=== PATIENT | female | born 1970 | race Caucasian/White ===

== ENCOUNTER 2020-03-20 10:41 | Emergency (ER) | payer OTHER, SELFPAY ==
[2020-03-20 10:51] VITALS: BP 114/55; PULSE 77; RESP 30; TEMP 36.9; O2SAT 99; BMI 24.7
--- NOTE | 2020-03-20 11:07 | CT_ITS ---
WS: [id number] CT ABDOMEN AND PELVIS WITH CONTRAST HISTORY: epigastric abd pain, severe LEFT upper quadrant pain TECHNIQUE: Imaging performed of the abdomen and pelvis with IV contrast. Single phase imaging of the abdomen. Coronal and sagittal reformats are submitted. All CT scans at [facility] use at least one of these dose optimization techniques: automated exposure control; mA and/or kV adjustment per patient size (includes targeted exams where dose is matched to clinical indication); or iterativ e reconstruction. IV CONTRAST: Omnipaque 300; 95 mL IV. Oral contrast: No DLP: 837.03 mGy.cm COMPARISON: None available. Quality of this examination is significantly limited by breathing motion artifact. Lower thorax: Lung bases are clear. Heart is normal size. No hiatal hernia. Liver/biliary system: Liver is normal size. There is marked intrahepatic and extrahepatic duct dilata tion. There are a few scattered low-attenuation lesions in the liver with the largest measuring 10 mm . Early metastatic lesions not excluded but these may be benign cysts. Gallbladder: Contracted gallbladder. Pancreas: Mild change in density of the pancreatic head. Common bile duct tapers rapidly to the pancr eatic head and there are changes suspicious for pancreatic head mass measuring 3.2 x 2.7 cm. There is no pancreatic duct dilatation or atrophy. Spleen: Normal. Adrenal glands: Adrenals are poorly visualized. No mass. Right kidney: Mild atrophy and cortical thinning. No obstruction. Left kidney: Mild atrophy with no obstruction. Hypodensity in the posterior renal pelvis is probably a cyst. Aorta: Normal. Lymphadenopathy: No lymph nodes are identified. Free fluid: None. GI tract: There is no GI tract obstruction. The duodenal C-loop at the pancreatic head is poorly visu alized due to motion. Abdominal wall: Unremarkable abdominal wall. No hernia. Pelvis: Uterus is enlarged. There is a heterogeneous enhancing mass in the central uterus. Mixed dens ity and enhancement in the central uterus measures 5.5 x 4.2 cm. Differential includes endometrial ne oplasia and subserosal fibroid. There is an additional cyst near the cervix measuring 2.[address] RIGHT ovarian cyst measures 3.3 x 3.0 cm. Bones: Increase in the lumbar lordosis. CT/CT abdomen pelvis w con* [id number] IMPRESSION: 1. Marked intrahepatic and extrahepatic duct dilatation. Suspect mass resultin g in obstruction at the pancreatic head/duodenum junction. Pancreatic neoplasm needs to be excluded. Common bile duct measures 1.6 cm. 2. Central uterine mass measuring 5.5 x 4.2 cm. Differential includes endometr ial neoplasm and subserosal fibroid. Recommend follow-up transvaginal pelvic ul trasound imaging and LOUVER MORTISER OPERATOR consultation. 3. A few scattered hypoattenuating lesions in the liver. 2 small to characteri ze. Benign cyst versus early metastatic lesions. 4. Study is compromised overall by motion. 5. Large nabothian cyst and a moderate-sized RIGHT ovarian cyst.
--- NOTE | 2020-03-20 11:08 | W.ED.ABDPA2 ---
HPI - Abdominal Pain General: Chief Complaint: Abdominal Pain Stated Complaint: ABD PAIN Time Seen by Provider: 03/20/20 10:49 History of Present Illness: HPI narrative: Patient is a 49-year-old female with no significant past medical history who comes to the ER complaining of severe epigastric abdominal pain which started this morning. She has never had this pain before. She is yelling and screaming grabbing and palpating her epigastric region with no tenderness when she palpates. When I palpate her reaction is out of proportion to most patients with this type of pain. She was given 100 mics of fentanyl by EMS on the way and rates her pain at a 5 currently. She is very panicked and sometimes will breathe 50 times a minute while you are in there. When you leave the room she is much more calm and breathes normally. Has any abdominal surgeries, gallstones, alcohol or drug intake. She had a normal bowel movement yesterday. MD elicited complaint: abdominal pain Pertinent past history: none Location: Epigastric Severity: severe Pain scale (0-10): 6 Quality: stabbing and sharp Exacerbating factors: nothing Relieving factors: nothing Associated Symptoms: Reports no associated symptoms; Denies GI cramping and diarrhea Review of Systems General: Reports: 10 or more systems reviewed and unremarkable except in HPI and below Const: Denies: fatigue Eyes: Denies: change in vision, blurry vision or eye redness ENMT: Denies: throat pain, swelling of lips/tongue, ear or mastoid pain or nasal congestion Card: Denies: chest pain, palpitations, irregular heart rhythm, edema, dyspnea on exertion or orthopnea Resp: Denies: dyspnea, productive cough or non-productive cough GI: Denies: abdominal pain, diarrhea or GI cramping : Denies: flank pain, difficulty voiding, urinary frequency or urinary urgency Musc: Denies: neck pain, back pain, extremity pain, joint pain, joint redness, limited range of motion or muscle weakness Skin/Breast: Denies: rash, pruritus, erythema, skin pain or skin tenderness Neuro: Denies: headache(s), numbness in extremities, weakness in extremities, sensory changes, difficulty walking, dizziness, confusion or Slurred speech present Psych: Denies: anxiety or depression Endo: Denies: polyuria All/Imm: Denies: urticaria, throat swelling or tongue swelling Physical Exam Const: COMMON NORMALS: no acute distress, average body habitus, patient oriented x3, no limitations, healthy appearing, alert and well nourished GENERAL APPEARANCE: cooperative, comfortable, well kempt and well developed ORIENTATION/CONSCIOUSNESS: Yes awake, Yes oriented to person, Yes oriented to place and Yes oriented to time HENMT: COMMON NORMALS: normocephalic, external ears normal and Normal external nose present HEAD & SCALP: normal to inspection and normocephalic NOSE: Normal external nose present EXTERNAL EAR: Yes external ears normal MOUTH: Normal oral and palatal mucosa present THROAT: posterior oropharynx normal Eye: COMMON NORMALS: Equal, round and reactive pupils present and EOMs intact bilaterally GENERAL EYE: appearance normal, both eyes and all related structures PUPIL: Yes Equal, round and reactive pupils present Neck/C-Spine: COMMON NORMALS: full ROM, no lymphadenopathy, no meningeal signs and no JVD GENERAL: Yes normal visual inspection Lymph: LYMPHATIC: no lymphadenopathy noted Chest: COMMONS NORMALS: normal inspection of the chest and normal palpation of entire chest wall Resp: COMMON NORMALS: normal respiratory effort, No retractions, No use of accessory muscles, clear to auscultation bilaterally and percussion normal EFFORT & INSPECTION: Yes able to speak in complete sentences AUSCULTATION: clear to auscultation bilaterally PERCUSSION: percussion normal Cardio: COMMON NORMALS: no JVD, regular rate, regular rhythm, S1 normal heart sound present, S2 normal heart sound present and Peripheral pulses 2+ throughout RATE: regular rate RHYTHM: regular rhythm HEART SOUNDS: S1 normal heart sound present and S2 normal heart sound present PERIPHERAL PULSES: Peripheral pulses 2+ throughout GI: COMMON NORMALS: Normal to inspection, nondistended, normoactive bowel sounds present, Soft to palpation and no masses INSPECTION: Yes normal to inspection PALPATION: Yes Soft to palpation OTHER: Epigastric abdominal tenderness. Severe pain when I palpate it. When she is rubbing and scratching her belly which she does not realize she is palpating her belly she does not have severe tenderness in the area. : COMMON NORMALS: Yes no CVA tenderness BLADDER/KIDNEY EXAM: Yes no CVA tenderness Back/Pelvis: COMMON NORMALS: no CVA tenderness, thoracic and lumbar spine normal to inspection, no thoracic nor lumbar tenderness and thoraco-lumbar ROM normal Extremity: COMMON NORMALS: normal to inspection, full ROM, capillary refill normal, no joint enlargement and no pedal edema GENERAL: Yes normal exam except as noted Neuro: COMMON NORMALS: patient oriented x3, CN's II-XII intact bilaterally, moves all extremities, no focal motor deficits, no sensory deficits noted and gait normal SENSORIUM/ORIENTATION: Yes alert, Yes oriented to person, Yes oriented to place and Yes oriented to time MENINGEAL SIGNS: Yes no meningeal signs Psych: COMMON NORMALS: mental status grossly normal, Normal thought process present, cooperative, normal affect and speech normal APPEARANCE: Yes well kempt ATTITUDE: Yes calm SPEECH: Yes normal speech THOUGHT PROCESS: Normal thought process present Skin: COMMON NORMALS: no rashes or lesions noted GENERAL SKIN EXAM: no rashes or lesions noted Course Vital Signs: Vital signs: Vital Signs Temperature 98.4 F 03/20/20 10:51 Pulse Rate 77 03/20/20 10:51 Respiratory Rate 18 03/20/20 13:31 Blood Pressure 114/55 03/20/20 10:51 Pulse Oximetry 99 03/20/20 10:51 MDM - Abdominal Pain MDM Narrative: Medical decision making narrative: The patient came in complaining of epigastric pain. On CT she has a pancreatic head mass obstructing the common bile duct with some dilatation. That is likely the cause of her pain and her lipase is elevated so there is also some acute pancreatitis present. Discussed with the patient and she prefers transfer to [facility]. Discussed with ER physician Dr. Tony who accepts for transfer. Lab Data: Labs: Lab Results 03/20/20 03/20/20 03/20/20 Range/Units 11:07 11:07 11:07 WBC (4.0-10.0) 10^3/ uL RBC (4.1-5.3) 10^6/u L Hgb (11.5-15.3) g/dL Hct (37.0-47.0) % MCV (81-99) fL MCH (28.0-34.0) pg MCHC (30.0-36.0) g/dL RDW (12.1-15.1) % Plt Count (130-400) 10^3/c mm MPV (7.4-10.4) fL Neut % (Auto) % Lymph % (Auto) % [place] % (Auto) % Eos % (Auto) % Baso % (Auto) % Neut # (Auto) (1.8-7.7) 10^3/u L Lymph # (Auto) (0.8-4.8) 10^3/u L [place] # (Auto) (0.2-0.9) 10^3/u L Eos # (Auto) (0.0-0.8) 10^3/u L Baso # (Auto) (0.0-0.1) 10^3/u L Nucleated RBC % (a uto) % Nucleated RBCs # /100WBC Sodium (136-145) mmol/L Potassium (3.5-5.1) mmol/L Chloride (98-107) mmol/L Carbon Dioxide (22-29) mmol/L Anion Gap (5-19) BUN (6-20) mg/dL Creatinine (0.5-0.9) mg/dL GFR Calculation (90-130) mL/min Glucose (65-115) mg/dL Calculated Osmolal ity (285-295) mOsm/k g Lactate (0.5-2.2) mmol/L Calcium (8.5-10.5) mg/dL Total Bilirubin (0.15-1.2) mg/dL AST (0-32) U/L ALT (0-33) U/L Alkaline Phosphata se (35-105) IU/L Total Protein (6.6-8.7) g/dL Albumin (3.5-5.2) g/dL Globulin (1.3-4.6) g/dL Lipase (13-60) U/L HCG, Qual Negative (Negative) Urine Color Straw (Yellow) Urine Appearance Clear (CLEAR) Urine pH 7 (5-7) Ur Specific Gravit y 1.000 L (1.005-1.030) Urine Protein Neg (Negative) Urine Glucose (UA) Norm (Normal) Urine Ketones Negative (Negative) Urine Blood Neg (Negative) Urine Nitrate Negative (Negative) Urine Bilirubin Neg (Negative) Urine Urobilinogen Norm (Negative) mg/dL Ur Leukocyte Leann ase Negative (Negative) Urine Opiates Scre en Negative (Negative) ng/mL Ur Barbiturates Sc reen Negative (Negative) ng/mL Ur Phencyclidine S crn Negative (Negative) ng/mL Ur Amphetamines Sc reen Negative (Negative) ng/mL U Benzodiazepines Scrn Negative (Negative) ng/mL Urine Cocaine Scre en Negative (Negative) ng/mL U Marijuana (THC) Screen Negative (Negative) ng/mL Ethyl Alcohol (0-10) mg/dL 03/20/20 03/20/20 03/20/20 Range/Units 11:12 11:12 11:12 WBC 17.2 H (4.0-10.0) 10^3/ uL RBC 4.29 (4.1-5.3) 10^6/u L Hgb 11.7 (11.5-15.3) g/dL Hct 36.8 L (37.0-47.0) % MCV 85.8 (81-99) fL MCH 27.3 L (28.0-34.0) pg MCHC 31.8 (30.0-36.0) g/dL RDW 14.5 (12.1-15.1) % Plt Count 331 (130-400) 10^3/c mm MPV 9.2 (7.4-10.4) fL Neut % (Auto) 88.0 % Lymph % (Auto) 4.8 % [place] % (Auto) 6.0 % Eos % (Auto) 0.3 % Baso % (Auto) 0.3 % Neut # (Auto) 15.16 H (1.8-7.7) 10^3/u L Lymph # (Auto) 0.8 (0.8-4.8) 10^3/u L [place] # (Auto) 1.0 H (0.2-0.9) 10^3/u L Eos # (Auto) 0.1 (0.0-0.8) 10^3/u L Baso # (Auto) 0.1 (0.0-0.1) 10^3/u L Nucleated RBC % (a uto) 0 % Nucleated RBCs # 0.0 /100WBC Sodium 138 (136-145) mmol/L Potassium 3.6 (3.5-5.1) mmol/L Chloride 106 (98-107) mmol/L Carbon Dioxide 20 L (22-29) mmol/L Anion Gap 15.6 (5-19) BUN 14 (6-20) mg/dL Creatinine 0.7 (0.5-0.9) mg/dL GFR Calculation 89.7 L (90-130) mL/min Glucose 158 H (65-115) mg/dL Calculated Osmolal ity 290 (285-295) mOsm/k g Lactate 3.2 H (0.5-2.2) mmol/L Calcium 8.8 (8.5-10.5) mg/dL Total Bilirubin 0.5 (0.15-1.2) mg/dL AST 34 H (0-32) U/L ALT 17 (0-33) U/L Alkaline Phosphata se 88 (35-105) IU/L Total Protein 6.7 (6.6-8.7) g/dL Albumin 3.8 (3.5-5.2) g/dL Globulin 2.9 (1.3-4.6) g/dL Lipase > 4329 H (13-60) U/L HCG, Qual (Negative) Urine Color (Yellow) Urine Appearance (CLEAR) Urine pH (5-7) Ur Specific Gravit y (1.005-1.030) Urine Protein (Negative) Urine Glucose (UA) (Normal) Urine Ketones (Negative) Urine Blood (Negative) Urine Nitrate (Negative) Urine Bilirubin (Negative) Urine Urobilinogen (Negative) mg/dL Ur Leukocyte Leann ase (Negative) Urine Opiates Scre en (Negative) ng/mL Ur Barbiturates Sc reen (Negative) ng/mL Ur Phencyclidine S crn (Negative) ng/mL Ur Amphetamines Sc reen (Negative) ng/mL U Benzodiazepines Scrn (Negative) ng/mL Urine Cocaine Scre en (Negative) ng/mL U Marijuana (THC) Screen (Negative) ng/mL Ethyl Alcohol < 10 (0-10) mg/dL Discharge Plan Discharge Patient Disposition: Xfer Other Clinical Impression: Mass of pancreas, Acute pancreatitis, Common bile duct (CBD) obstruction Condition: Stable Coding Level of Care Code ED Lumber Driver for Chg Fwd Exam Comprehensive
[2020-03-20] MEDS: iohexol 300 mg/mL 100 mL Btl IV (11:25)
[2020-03-20] MEDS: LORazepam 2 mg/mL INJ 1 mL 0.5 MG IVP (11:33)
[2020-03-20] MEDS: lidocaine 2% viscous 15 ML, aluminum-mag hydrox-simethicon 30 ML, sucralfate oral liq 1 GM PO (11:34)
[2020-03-20 11:40] LABS: Basophils # 0.1 10^3/uL (0.0-0.1); Basophils % 0.3 %; Eosinophils # 0.1 10^3/uL (0.0-0.8); Eosinophils % 0.3 %; Hematocrit 36.8 % (37.0-47.0); Hemoglobin 11.7 g/dL (11.5-15.3); Lymphocytes # 0.8 10^3/uL (0.8-4.8); Lymphocytes % 4.8 %; Mean Corpuscular HGB Conc 31.8 g/dL (30.0-36.0); Mean Corpuscular Hemoglobin 27.3 pg (28.0-34.0); Mean Corpuscular Volume 85.8 fL (81-99); Mean Platelet Volume 9.2 fL (7.4-10.4); Neutrophils # 15.16 10^3/uL (1.8-7.7); Nucleated Red Blood Cells % 0 %; Platelet Count 331 10^3/cmm (130-400); Red Blood Count 4.29 10^6/uL (4.1-5.3); Red Cell Distribution Width 14.5 % (12.1-15.1); White Blood Count 17.2 10^3/uL (4.0-10.0)
[2020-03-20 11:49] LABS: Alanine Aminotransferase 17 U/L (0-33); Albumin Level 3.8 g/dL (3.5-5.2); Alkaline Phosphatase 88 IU/L (35-105); Anion Gap 15.6 (5-19); Aspartate Amino Transferase 34 U/L (0-32); Blood Urea Nitrogen 14 mg/dL (6-20); Calcium 8.8 mg/dL (8.5-10.5); Carbon Dioxide 20 mmol/L (22-29); Chloride 106 mmol/L (98-107); Globulin 2.9 g/dL (1.3-4.6); Glomerular Filtration Rate 89.7 mL/min (90-130); Glucose 158 mg/dL (65-115); Osmolality Calculated 290 mOsm/kg (285-295); Potassium 3.6 mmol/L (3.5-5.1); Sodium 138 mmol/L (136-145); Total Bilirubin 0.5 mg/dL (0.15-1.2); Total Protein 6.7 g/dL (6.6-8.7)
[2020-03-20 11:50] LABS: Lactate (Lactic Acid level) 3.2 mmol/L (0.5-2.2)
[2020-03-20 11:52] LABS: Alcohol Level < 10 mg/dL (0-10)
[2020-03-20 12:07] LABS: Amphetamines Screen Urine Negative (Negative); Barbiturates Screen Urine Negative (Negative); Benzodiazepines Screen Urine Negative (Negative); Cocaine Screen Urine Negative (Negative); Opiate Screen Urine Negative (Negative); PCP Screen Urine Negative (Negative); THC Screen Urine Negative (Negative)
[2020-03-20 12:14] LABS: Add Urine Microscopic? NO
[2020-03-20 12:21] LABS: Bilirubin Urine Neg (Negative); Blood Urine Neg (Negative); Glucose Urine UA Norm (Normal); Ketones Urine Negative (Negative); Leukocyte Esterase Urine Negative (Negative); Nitrate Urine Negative (Negative); Protein Urine Neg (Negative); Urine Appearance Clear (CLEAR); Urine Color Straw (Yellow); Urobilinogen Urine Norm (Negative); pH Urine 7 (5-7)
[2020-03-20 12:23] LABS: HCG Qualitative Urine. Negative (Negative)
--- NOTE | 2020-03-20 12:25 | ECG_ITS ---
[facility] Test Date: 2020-03-20 Pat Name: America Robert Department: Room: Gender: Female Credit Collections Analyst: : 1970 Requested By: Domingo Barragan Order Number: [id number] Lima MD: Jeovany Ludwig M.D. Measurements Intervals [place] Rate: 78 P: 82 KS: 172 QRS: 81 QRSD: 110 T: 70 QT: 403 QTc: 460 Interpretive Statements SINUS RHYTHM WITH OCCASIONAL VENTRICULAR PREMATURE COMPLEXES No previous ECG available for comparison Electronically Signed On 03-20-2020 20:11:34 CLIN NURSE SPEC by Jeovany Ludwig M.D. [email or web address]
[2020-03-20] MEDS: ondansetron 2 mg/ML SDV 2 mL 4 MG IVP (12:34)
[2020-03-20 12:41] VITALS: RESP 18
[2020-03-20] MEDS: HYDROmorphone 1 mg/mL INJ 1 mL 0.5 MG IVP ×2 (12:41→13:31)
[2020-03-20] MEDS: sodium chloride 0.9% 1,000 ML 999 ML IV (12:45)
[2020-03-20] MEDS: vancomycin 1,000 MG in sodium chloride 0.9% 250 ML 250 MG IV (13:12)
[2020-03-20 13:31] VITALS: RESP 18
--- NOTE | 2020-03-20 13:33 | PC.NURSE ---
EKG done at 1330 and shown to ER doctor.
[2020-03-20 14:47] VITALS: BP 122/65; PULSE 78; RESP 18; O2SAT 99
[2020-03-20] MEDS: piperacillin-tazobactam 3.375 GM in sodium chloride 0.9% (plus) 50 ML IV (15:10)
[2020-03-20 15:42] VITALS: BP 131/79; PULSE 80; RESP 18; O2SAT 98
[2020-03-20 16:23] VITALS: BP 123/61; PULSE 79; RESP 19; TEMP 36.9; O2SAT 99
[2020-03-20 16:54] LABS: SARS Covid-2 Antigen Negative (Negative)
== END 2020-03-20 16:25 | disposition other institution (70) ==
PROVIDERS: Emergency Provider Family Medicine
DX: K85.90 Acute pancreatitis without necrosis or infection, unspecified (principal); K86.9 Disease of pancreas, unspecified; K83.1 Obstruction of bile duct
CPT/HCPCS: 12345; 36415; 74177; 80053; 80306; 80307; 81003; 81025; 83605; 83690; 85025; 87426; 93005; 96365; 96367; 96375; 96376; 99283; 99285; J1170; J2060; J2405; J2543; J3370; J7030; J7050; Q9967

== ENCOUNTER 2022-11-26 03:53 | Emergency (ER) | payer OTHER, BC, MEDICAID, SELFPAY ==
[2022-11-26 03:58] VITALS: BP 183/89; PULSE 91; RESP 20; TEMP 36.7; O2SAT 96; BMI 28.3
--- NOTE | 2022-11-26 04:07 | XRR_ITS ---
PROCEDURE INFORMATION: Exam: XR Chest Exam date and time: 11/26/2022 4:15 AM Age: 52 years old Clinical indication: Cough; Additional info: Cough congestion TECHNIQUE: Imaging protocol: Radiologic exam of the chest. Views: 1 view. COMPARISON: CT abdomen pelvis w con* [id number] 03/20/2020 11:12 AM FINDINGS: Lungs: Unremarkable. No consolidation. Pleural spaces: Unremarkable. No pleural effusion. No pneumothorax. Heart/Mediastinum: Unremarkable. No cardiomegaly. Bones/joints: Unremarkable. XR/XR chest 1V portable [id number] IMPRESSION: No acute findings.
--- NOTE | 2022-11-26 04:09 | ED_ITS ---
HPI - URI/Sore Throat General: Chief Complaint: Upper Respiratory Infection Stated Complaint: Body aches, head pain, congestion Time Seen by Provider: 11/26/22 03:55 History of Present Illness: Patient presents to the ER with complaints of cough cold congestion and overall body aches. Patient states this started a couple days ago and is progressively gotten worse. Patient does not know any sick contacts that has similar symptoms. Review of Systems General: Reports: 10 or more systems reviewed and unremarkable except in HPI and below Physical Exam Const: COMMON NORMALS: no acute distress, average body habitus, patient oriented x3, no limitations, healthy appearing, alert and well nourished HENMT: COMMON NORMALS: normocephalic, atraumatic, hearing grossly normal bilaterally, external ears normal, Normal external nose present, moist oral mucous membranes and oropharynx normal HEAD & SCALP: normocephalic and atraumatic NOSE: Normal external nose present EXTERNAL EAR: Yes external ears normal Neck/C-Spine: COMMON NORMALS: full ROM, no lymphadenopathy, supple, no meningeal signs, no JVD and Thyroid normal THYROID: Thyroid normal Chest: COMMONS NORMALS: normal inspection of the chest and normal palpation of entire chest wall Resp: COMMON NORMALS: normal respiratory effort, No retractions, No use of accessory muscles, clear to auscultation bilaterally and percussion normal AUSCULTATION: clear to auscultation bilaterally PERCUSSION: percussion normal Cardio: COMMON NORMALS: no JVD, regular rate, regular rhythm, S1 normal heart sound present, S2 normal heart sound present, No gallops present (Cardio), No clicks present (Cardio), No murmurs present (Cardio) and No rub (Cardio) RATE: regular rate RHYTHM: regular rhythm HEART SOUNDS: S1 normal heart sound present and S2 normal heart sound present GI: COMMON NORMALS: Normal to inspection, nondistended, normoactive bowel sounds present, Soft to palpation, non-tender, No hepatosplenomegaly present and no masses PALPATION: Yes Soft to palpation and Yes No hepatosplenomegaly present Neuro: COMMON NORMALS: patient oriented x3 SENSORIUM/ORIENTATION: Yes alert MENINGEAL SIGNS: Yes no meningeal signs Course Vital Signs: Vital signs: Vital Signs Temperature 98.0 F 11/26/22 03:58 Pulse Rate 91 11/26/22 03:58 Respiratory Rate 20 H 11/26/22 03:58 Blood Pressure 183/89 11/26/22 03:58 Pulse Oximetry 96 11/26/22 03:58 Oxygen Delivery Me thod Room Air 11/26/22 03:58 MDM - URI/Sore Throat Medical Decision Making Patient presents to the ER with complaints of viral-like syndrome. Patient was worked up with physical exam and lab work chest x-ray and influenza and COVID testing all of which were negative. Patient was given 60 mg Toradol for headache. Patient be discharged home with a diagnosis of upper respiratory infection/viral syndrome. Differential Diagnosis Likely upper respiratory infection and viral infection; Unlikely croup, otitis media, sinusitis, bronchitis, influenza or pharyngitis Medical Records I reviewed the patient's medical records. Lab Data I reviewed the patient's lab results. 11/26/22 04:20 11/26/22 04:20 Radiology Impressions Chest X-Ray 11/26/22 04:07 IMPRESSION: No acute findings. Laboratory Results WBC 8.80 10^3/uL (3.29-11.43) 11/26/22 04:20 RBC 4.36 10^6/uL (3.85-5.65) 11/26/22 04:20 Hgb 12.80 g/dL (11.27-16.99) 11/26/22 04:20 Hct 38.4 % (36-47) 11/26/22 04:20 MCV 88.1 fl (85-98) 11/26/22 04:20 MCH 29.4 pg (27-33) 11/26/22 04:20 MCHC 33.3 g/dL (30-55) 11/26/22 04:20 RDW 12.3 % (12.1-15.1) 11/26/22 04:20 Plt Count 296 10^3/cmm (157-399) 11/26/22 04:20 MPV 9.1 fL (7.4-10.4) 11/26/22 04:20 Neut % (Auto) 61.8 % 11/26/22 04:20 Lymph % (Auto) 27.0 % 11/26/22 04:20 [place] % (Auto) 7.2 % 11/26/22 04:20 Eos % (Auto) 3.2 % 11/26/22 04:20 Baso % (Auto) 0.3 % 11/26/22 04:20 Neut # (Auto) 5.44 10^3/uL (1.8-7.7) 11/26/22 04:20 Lymph # (Auto) 2.4 10^3/uL (0.8-4.8) 11/26/22 04:20 [place] # (Auto) 0.6 10^3/uL (0.2-0.9) 11/26/22 04:20 Eos # (Auto) 0.3 10^3/uL (0.0-0.8) 11/26/22 04:20 Baso # (Auto) 0.0 10^3/uL (0.0-0.1) 11/26/22 04:20 Nucleated RBC % (auto) 0 % 11/26/22 04:20 Nucleated RBCs # 0.0 /100WBC 11/26/22 04:20 Sodium 137 mmol/L (136-145) 11/26/22 04:20 Potassium 3.7 mmol/L (3.5-5.1) 11/26/22 04:20 Chloride 101 mmol/L (98-107) 11/26/22 04:20 Carbon Dioxide 26 mmol/L (22-29) 11/26/22 04:20 Anion Gap 13.7 (5-19) 11/26/22 04:20 BUN 13 mg/dL (6-20) 11/26/22 04:20 Creatinine 0.8 mg/dL (0.5-0.9) 11/26/22 04:20 GFR Calculation 75.9 mL/min (90-130) L 11/26/22 04:20 Glucose 93 mg/dL (65-115) 11/26/22 04:20 Calculated Osmolality 284 mOsm/kg (285-295) L 11/26/22 04:20 Calcium 9.1 mg/dL (8.5-10.5) 11/26/22 04:20 Total Bilirubin 0.2 mg/dL (0.15-1.2) 11/26/22 04:20 AST 14 U/L (0-32) 11/26/22 04:20 ALT 12 U/L (0-33) 11/26/22 04:20 Alkaline Phosphatase 56 U/L (35-105) 11/26/22 04:20 Total Protein 7.0 g/dL (6.6-8.7) 11/26/22 04:20 Albumin 4.2 g/dL (3.5-5.2) 11/26/22 04:20 Globulin 2.8 g/dL (1.3-4.6) 11/26/22 04:20 Urine Color Light yellow (Yellow) 11/26/22 04:26 Urine Appearance Clear (CLEAR) 11/26/22 04:26 Urine pH 6.5 (5-7) 11/26/22 04:26 Ur Specific [place] 1.005 (1.005-1.030) 11/26/22 04:26 Urine Protein Neg (Negative) 11/26/22 04:26 Urine Glucose (UA) Norm (Normal) 11/26/22 04:26 Urine Ketones Negative (Negative) 11/26/22 04:26 Urine Blood Neg (Negative) 11/26/22 04:26 Urine Nitrate Negative (Negative) 11/26/22 04:26 Urine Bilirubin Neg (Negative) 11/26/22 04:26 Urine Urobilinogen Neg mg/dL (Negative) 11/26/22 04:26 Ur Leukocyte Esterase Negative (Negative) 11/26/22 04:26 Influenza Type A Ag negative (Negative) 11/26/22 04:25 Influenza Type B Ag negative (Negative) 11/26/22 04:25 SARS-CoV-2 Ag (Rapid) negative (Negative) 11/26/22 04:25 All radiology interpretation(s) finalized by discharge Discharge Plan Discharge Patient Disposition: Home Clinical Impression: Upper respiratory infection Qualifiers: URI type: unspecified URI Qualified Code(s): J06.9 - Acute upper respiratory infection, unspecified Condition: Stable Prescriptions: No Action ibuprofen 200 mg Tablet 800 mg PO PRN Discharge Orders: Discharge ED (Routine); Ordered 11/26/22 Ordered By: Conrad Minaya Patient Instructions: Upper Respiratory Infection - Adult Activity Restrictions/Additional Instructions: Please continue take Tylenol Motrin as needed for body aches and push plenty of fluids. Please follow-up with your family practice physician within 7 days as needed for further evaluation and treatment. If symptoms worsen feel free to return to the ER. Coding Level of Care Code ED Director Social Welfare for Bailey Da Silva
[2022-11-26 04:28] LABS: Basophils % 0.3 %; Eosinophils # 0.3 10^3/uL (0.0-0.8); Eosinophils % 3.2 %; Hematocrit 38.4 % (36-47); Lymphocytes # 2.4 10^3/uL (0.8-4.8); Mean Corpuscular HGB Conc 33.3 g/dL (30-55); Mean Corpuscular Hemoglobin 29.4 pg (27-33); Mean Corpuscular Volume 88.1 fl (85-98); Mean Platelet Volume 9.1 fL (7.4-10.4); Monocytes # 0.6 10^3/uL (0.2-0.9); Monocytes % 7.2 %; Neutrophils # 5.44 10^3/uL (1.8-7.7); Neutrophils % 61.8 %; Nucleated Red Blood Cells % 0 %; Platelet Count 296 10^3/cmm (157-399); Red Blood Count 4.36 10^6/uL (3.85-5.65); Red Cell Distribution Width 12.3 % (12.1-15.1)
[2022-11-26 04:30] LABS: Add Urine Microscopic? NO; Charge for UA Resulting for Rev
[2022-11-26 04:34] LABS: Bilirubin Urine Neg (Negative); Blood Urine Neg (Negative); Glucose Urine UA Norm (Normal); Ketones Urine Negative (Negative); Leukocyte Esterase Urine Negative (Negative); Nitrate Urine Negative (Negative); Protein Urine Neg (Negative); Specific Gravity, Urine 1.005 (1.005-1.030); Urine Appearance Clear (CLEAR); Urine Color Light yellow (Yellow); Urobilinogen Urine Neg (Negative); pH Urine 6.5 (5-7)
[2022-11-26 04:45] LABS: Influenza A by IFA negative (Negative); Influenza B by IFA negative (Negative); SARS Covid-2 Antigen negative (Negative)
[2022-11-26 04:50] LABS: Alanine Aminotransferase 12 U/L (0-33); Albumin Level 4.2 g/dL (3.5-5.2); Alkaline Phosphatase 56 U/L (35-105); Anion Gap 13.7 (5-19); Aspartate Amino Transferase 14 U/L (0-32); Blood Urea Nitrogen 13 mg/dL (6-20); Calcium 9.1 mg/dL (8.5-10.5); Carbon Dioxide 26 mmol/L (22-29); Chloride 101 mmol/L (98-107); Globulin 2.8 g/dL (1.3-4.6); Glomerular Filtration Rate 75.9 mL/min (90-130); Glucose 93 mg/dL (65-115); Osmolality Calculated 284 mOsm/kg (285-295); Potassium 3.7 mmol/L (3.5-5.1); Sodium 137 mmol/L (136-145); Total Bilirubin 0.2 mg/dL (0.15-1.2)
[2022-11-26] MEDS: ketorolac 30 mg/mL INJ IVP (05:17)
== END 2022-11-26 05:28 | disposition home or self-care (01) ==
PROVIDERS: Emergency Provider Emergency Medicine
DX: J06.9 Acute upper respiratory infection, unspecified (principal); Z11.52 Encounter for screening for COVID-19
CPT/HCPCS: 71045; 80053; 81003; 85025; 87426; 87804; 96374; 99284; J1885

== ENCOUNTER → 2022-12-07 08:23 | Outpatient (BNVA) | payer OTHER, BC, SELFPAY | PROVIDERS: Referring Provider Nurse Practitioner; Visit Provider Specialist | DX: M19.041 Primary osteoarthritis, right hand; M19.042 Primary osteoarthritis, left hand | CPT/HCPCS: 73130 ==

== ENCOUNTER → 2023-09-28 15:00 | Outpatient (BNVA) | payer OTHER, SELFPAY | PROVIDERS: PCP Nurse Practitioner; Visit Provider Nurse Practitioner Family | DX: R50.9 Fever, unspecified (principal); J02.9 Acute pharyngitis, unspecified | CPT/HCPCS: 87400; 87426 ==

== ENCOUNTER → 2024-09-07 15:32 | Outpatient (BNVA) | payer OTHER, SELFPAY | PROVIDERS: PCP Nurse Practitioner; Visit Provider Nurse Practitioner | DX: R42 Dizziness and giddiness (principal); R31.9 Hematuria, unspecified | CPT/HCPCS: 81000; 87077; 87086; 87184 ==

== ENCOUNTER → 2025-01-19 14:48 | Outpatient (BNVA) | payer OTHER, SELFPAY | PROVIDERS: PCP Nurse Practitioner; Visit Provider Nurse Practitioner | DX: M79.671 Pain in right foot (principal) | CPT/HCPCS: 73630 ==